=== PATIENT | male | born 1980 | race Caucasian/White ===

== ENCOUNTER 2020-09-01 11:50 | Outpatient (CLI) | payer OTHER | END 2020-09-01 11:51 | disposition home or self-care (01) | LOC: COV 11:50 | PROVIDERS: ATTEND Family Medicine | DX: R05 Cough (principal); Z20.828 Contact with and (suspected) exposure to other viral communicable diseases; R06.02 Shortness of breath; R68.83 Chills (without fever); R53.83 Other fatigue; R09.81 Nasal congestion; J02.9 Acute pharyngitis, unspecified; R43.9 Unspecified disturbances of smell and taste ==